=== PATIENT | male | born 1990 | race Caucasian/White ===

== ENCOUNTER 2024-07-12 11:19 | Emergency (ER) | payer MEDICAID ==
[~2024-07-12] VITALS: Ht 162.6 cm; Wt 68.0 kg
[2024-07-12 11:21] VITALS: O2SAT 99
[2024-07-12 11:28] VITALS: TEMP 37.2; O2SAT 100
[2024-07-12 12:29] LABS: BASOPHILS % 0.9 % (0.0-2.0); EOSINOPHILS % 2.5 % (0.0-5.0); HEMATOCRIT. 45.1 % (42.0-52.0); LYMPHOCYTES % 34.2 % (20.0-50.0); MEAN CORPUSCULAR HEMOGLOBIN 26.8 pg (28.0-32.0); MEAN CORPUSCULAR HGB CONC 33.2 g/dL (31.0-37.0); MEAN CORPUSCULAR VOLUME 80.7 fL (80.0-94.0); MEAN PLATELET VOLUME 7.2 fl (7.4-10.4); MONOCYTES % 8.7 % (2.0-8.0); NEUTROPHILS % 53.7 % (40.0-76.0); PLATELET 405 x1000/uL (130-400); RED BLOOD CELL COUNT 5.59 mill/uL (4.7-6.1); RED CELL DISTRIBUTION WIDTH 13.3 % (11.6-14.6)
[2024-07-12 12:33] LABS: CHLORIDE 102 mEq/L (98-107); POTASSIUM 3.8 mEq/L (3.5-5.1); SODIUM 140 mEq/L (136-145)
[2024-07-12 12:34] LABS: CARBON DIOXIDE 31 mEq/L (21-32)
[2024-07-12 12:35] LABS: CALCIUM 9.9 mg/dL (8.7-10.4)
[2024-07-12 12:39] LABS: CREATININE 1.1 mg/dL (0.6-1.3); GLUCOSE 109 mg/dL (70-105); UREA NITROGEN BLOOD 12 mg/dL (9-23)
[2024-07-12] MEDS: METRONIDAZOLE 500 MG PREMIX 100 ML IV ONE (13:51)
[2024-07-12] MEDS: PIPERACILLIN/TAZO 3.375G/50ML 50 ML IV SCH (14:07)
[2024-07-12 14:33] VITALS: BP 121/79; PULSE 83; RESP 18; TEMP 98.9
[2024-07-12] MEDS: IOHEXOL-300 100 ML BOTTLE ONE (14:46)
[2024-07-12] MEDS ORDERED: AMOX1TAB16 MT (15:11)
== END 2024-07-12 15:07 | disposition left against medical advice (07) ==
LOC: ER 11:29 → EDBEDREQTM 13:58 → EDBEDREQ 13:58 → ER 15:07
DX: K61.0 Anal abscess (principal); M48.061 Spinal stenosis, lumbar region without neurogenic claudication; M51.26 Other intervertebral disc displacement, lumbar region; Z90.49 Acquired absence of other specified parts of digestive tract
CPT/HCPCS: 99285; 74177; 96365; 96367; 80048; 85025; 36415; Q9967; J3490; J2543